=== PATIENT | male | born 1965 | race Caucasian/White ===

== ENCOUNTER → 2017-07-29 | Outpatient (CLI) | payer OTHER ==
--- NOTE | 2017-07-29 10:27 | RAD ---
Indication follow-up fracture. AP and lateral views of the right femur were obtained. A plate and screws fix a diaphyseal fracture. No complication or unexpected finding is seen. IMPRESSION:: ORIF of femoral fracture. No unexpected finding seen
--- NOTE | 2017-07-29 16:30 | RAD ---
Indication: Chronic right hip pain. An AP view of the pelvis was obtained as well as frog-leg view of the right hip. Postoperative changes are seen. An acute bony finding is not seen. Advanced degenerative changes involving either hip is not apparent on plain film
== END | disposition home or self-care (01) ==
LOC: DXRADRC 09:39
PROVIDERS: ATTEND General Practice
DX: S72.91XD Unspecified fracture of right femur, subsequent encounter for closed fracture with routine healing (principal); G89.29 Other chronic pain; M25.551 Pain in right hip; Z98.890 Other specified postprocedural states; X58.XXXD Exposure to other specified factors, subsequent encounter
CPT/HCPCS: 73521; 73552